=== PATIENT | female | born 1975 | race African-American/Black ===

== ENCOUNTER 2018-09-11 05:49 | Emergency (ER) | payer MEDICAID, OTHER ==
[~2018-09-11] VITALS: Ht 152.4 cm; Wt 65.0 kg
[2018-09-11 07:21] LABS: CHLORIDE 111 mEq/L (98-107)
[2018-09-11 07:22] LABS: PROTHROMBIN TIME 10.5 sec (9.6-11.0)
[2018-09-11 07:30] LABS: BASOPHILS % 0.8 % (0.0-2.0); EOSINOPHILS % 0.7 % (0.0-5.0); HEMATOCRIT. 29.8 % (36.0-48.0); HEMOGLOBIN. 8.8 g/dL (12.0-16.0); LYMPHOCYTES % 29.2 % (20.0-50.0); MEAN CORPUSCULAR HEMOGLOBIN 19.1 pg (28.0-32.0); MEAN CORPUSCULAR VOLUME 64.7 fL (81.0-99.0); MEAN PLATELET VOLUME 6.7 fl (7.4-10.4); MONOCYTES % 5.9 % (2.0-8.0); NEUTROPHILS % 63.4 % (40.0-76.0); PLATELET 401 x1000/uL (130-400)
[2018-09-11] MEDS ORDERED: POTASSIUM CHLORIDE 20MEQ TABLET SR PO ONE (07:30)
[2018-09-11 08:15] LABS: PLATELET ESTIMATE NORMAL
[2018-09-11 09:11] VITALS: BP 117/70
== END 2018-09-11 09:20 | disposition home or self-care (01) ==
LOC: ER 05:49
DX: D64.9 Anemia, unspecified (principal); R06.02 Shortness of breath
CPT/HCPCS: 36415; 71045; 80053; 84484; 85025; 85610; 86850; 86900; 86901; 93005; 99284; Z7610